=== PATIENT | male | born 1945 | race Caucasian/White ===

== ENCOUNTER 2023-10-08 03:15 | Emergency (ER) | payer OTHER, SELFPAY ==
[2023-10-08 03:23] VITALS: BP 162/94; PULSE 100; O2SAT 99
[2023-10-08 03:29] VITALS: BMI 28.1
[2023-10-08 03:58] LABS: MANUAL DIFF FLAG NO
[2023-10-08 03:59] LABS: Basophils Percent Auto 0.2 % (0-2); Eosinophils Absolute Auto 0.1 X10*3/uL (0.0-0.4); Eosinophils Percent Auto 0.9 % (0-4); Hematocrit 38.6 % (42.0-52.0); Hemoglobin 13.1 g/dl (14.0-18.0); Imm Gran Abs Auto 0.03 X10*3/uL (0.00-0.03); Imm Gran Pct Auto 0.2 % (0.0-0.4); Lymphocytes Absolute Auto 1.5 X10*3/uL (1.2-4.9); Lymphocytes Percent Auto 11.9 % (20-40); Mean Corpuscular HGB Conc 33.9 g/dl (31.0-36.0); Mean Corpuscular Hemoglobin 29.6 pg (27.0-33.0); Mean Corpuscular Volume 87.1 fL (80.0-98.0); Mean Platelet Volume 10.3 fL (9.4-12.4); Monocytes Percent Auto 8.3 % (2-11); Neutrophils Absolute Auto 9.6 x10*3/uL (2.0-8.3); Neutrophils Percent Auto 78.5 % (45-73); Platelet Count 218 X10*3/uL (160-400); Red Blood Count 4.43 X10*6/uL (4.60-5.80); Red Cell Distribution Width 12.3 % (11.0-16.0); White Blood Count 12.2 X10*3/uL (4.8-10.8)
[2023-10-08 04:20] LABS: Alanine Aminotransferase 12 U/L (0-40); Albumin Level 3.6 g/dL (3.5-5.0); Alkaline Phosphatase 62 U/L (39-117); Anion Gap 10 (12-20); Aspartate Amino Transferase 16 U/L (5-37); Bilirubin Direct 0.2 mg/dL (0.0-0.5); Bilirubin Total 0.6 mg/dL (0.0-1.0); Blood Urea Nitrogen 9 mg/dL (9-16); Calcium 10.1 mg/dL (8.4-10.2); Carbon Dioxide 29 mmol/L (22-29); Chloride 103 mmol/L (96-108); Creatinine Clr Calc Pharmacy 88.9; Estimated Glomerular Filt Rate > 60; Glucose Random 145 mg/dL (60-115); Lipase 16 U/L (8-78); Potassium 3.6 mmol/L (3.3-5.1); Sodium 138 mmol/L (135-145); Total Protein 6.9 g/dL (6.5-8.0)
[2023-10-08 04:51] VITALS: BP 111/60; PULSE 76; RESP 16; TEMP 36.9; O2SAT 98
[2023-10-08 07:10] VITALS: BP 128/62; PULSE 80; RESP 16; TEMP 36.9; O2SAT 99
--- NOTE | 2023-10-08 07:36 | ECG_ITS ---
Test Reason : CHEST PAIN Blood Pressure : / mmHG Vent. Rate : 082 BPM Atrial Rate : 082 BPM P-R Int : 144 ms QRS Dur : 088 ms QT Int : 364 ms P-R-T Axes : 041 -16 054 degrees QTc Int : 425 ms Normal sinus rhythm Low voltage QRS Borderline ECG No previous ECGs available Referred By: Real Martinez Electronically Signed By:PENG RAMIREZ MD
--- NOTE | 2023-10-08 08:06 | ED.NAVMDI ---
HPI - Nausea/Vomiting/Diarrhea General Chief complaint: Nausea/Vomiting/Diarrhea Stated complaint: weakness/ nausea/vomiting Time Seen by Provider: 10/08/23 07:00 Source: patient Mode of arrival: EMS Limitations: no limitations History of Present Illness HPI Narrative: 77-year-old male with a history of PTSD, hyperlipidemia who presents emergency department by ambulance for evaluation of hiccups, vomiting, unable to eat or drink. Patient states that he became ill yesterday morning and his symptoms started with hiccups. He states that he is vomited multiple times and has not been able to eat or drink. He also complains of abdominal pain and he points to his epigastric area, describes his pain is a squeezing sensation. He states he is feeling lightheaded, dizzy and weak. He also complains of subjective fever and chills, nonproductive cough, chest pain. He denied diarrhea. Related Data Previous Rx's ?Medication ?Instructions ?Recorded chlorpromazine 50 mg tablet 50 mg PO TID PRN Nausea, vomiting, 10/08/23 hiccups #12 tabs Allergies Allergy/AdvReac Type Severity Reaction Status Date / Time No Known Allergies Allergy Unverified 10/08/23 03:31 Review of Systems Review of Systems: Yes all other systems are reviewed and are negative [facility] Past Medical History [facility] Narrative: Social history: He denies tobacco use. He occasionally drinks alcohol. He denies drug use. Social History Social History Advance Directives: No Advance Directives Information Provided: Yes Physical Exam Vital Signs: Vital Signs: Last Vital Signs Temp 98.4 F 10/08/23 07:10 Pulse 80 10/08/23 07:10 Resp 16 10/08/23 07:10 BP 128/62 10/08/23 07:10 Pulse Ox 99 10/08/23 07:10 O2 Del Method Room Air 10/08/23 07:10 BMI result Body Mass Index 28.1 Vital signs were normal Exam: General: Awake, alert in no distress, patient has persistent hiccups Head: Normocephalic, atraumatic EENT: PERRL, Lids normal, sclera normal, conjunctiva normal, nose normal , ears normal, throat without erythema or exudates Neck: Supple, no adenopathy Lung: breath sounds symmetric, no wheezing, rales or rhonchi Chest: symmetric movement, nontender Heart: regular rate and rhythm, normal S1, S2 no murmurs or rubs Abdomen: soft, mild to moderate epigastric tenderness, nondistended, normal bowel sounds Back: no vertebral tenderness, no CVAT Extremities: no deformities, moves all extremities symmetrically Neuro: Awake, alert, oriented, normal speech, cranial nerves intact, moves all extremities symmetrically Psych: Pleasant, cooperative Medical Decision Making Medical Decision Making MDM Narrative: 77-year-old male with a history of PTSD, hyperlipidemia who presents emergency department by ambulance for evaluation of hiccups, vomiting, unable to eat or drink, epigastric pain, lightheadedness, dizziness, subjective fever and chills x2 days. Vital signs were unremarkable. Patient had persistent hiccups and exam did reveal epigastric tenderness otherwise was unremarkable. Differential diagnosis: ?Includes but is not limited to intractable hiccups, viral syndrome, electrolyte abnormalities, anemia, dehydration Following evaluation was ordered: CBC, BMP, liver panel, lipase, EKG Patient was initially treated with the following: Thorazine 50 mg IV, normal saline x1 L Course: 08:11 My interpretation patient's laboratory evaluation as follows: Elevated WBC 39094. Normocytic anemia with an H&H of 13.1 and 38.6, platelet count was normal 218,000. Glucose elevated 145. LFTs were normal. Lipase was normal. Urinalysis was positive for nitrates, microscopic revealed 15-29 WBCs, 1+ epithelial cells, 1+ bacteria. Patient is feeling better after the above treatment and his hiccups have resolved. Patient's symptoms are most likely caused by a viral syndrome. I prescribed Thorazine 50 mg 3 times a day as needed for hiccups and nausea and vomiting. He was given printed and verbal instructions and discharged home. Lab Data 10/08/23 03:53 10/08/23 03:53 Labs: Lab Results 10/08/23 Range/Units 03:53 WBC 12.2 H (4.8-10.8) X10*3/uL RBC 4.43 L (4.60-5.80) X10*6/uL Hgb 13.1 L (14.0-18.0) g/dl Hct 38.6 L (42.0-52.0) % MCV 87.1 (80.0-98.0) fL MCH 29.6 (27.0-33.0) pg MCHC 33.9 (31.0-36.0) g/dl RDW 12.3 (11.0-16.0) % Plt Count 218 (160-400) X10*3/uL MPV 10.3 (9.4-12.4) fL Immature Gran % (Auto) 0.2 (0.0-0.4) % Neut % (Auto) 78.5 H (45-73) % Lymph % (Auto) 11.9 L (20-40) % Travis % (Auto) 8.3 (2-11) % Eos % (Auto) 0.9 (0-4) % Baso % (Auto) 0.2 (0-2) % Lymph # (Auto) 1.5 (1.2-4.9) X10*3/uL Travis # (Auto) 1.0 (0.1-1.2) X10*3/uL Eos # (Auto) 0.1 (0.0-0.4) X10*3/uL Baso # (Auto) 0.0 (0.0-0.2) X10*3/uL Abs Immat Gran (auto) 0.03 (0.00-0.03) X10*3/uL Absolute Neuts (auto) 9.6 H (2.0-8.3) x10*3/uL Absolute Nucleated RBC 0.000 (0.0-0.012) X10*3/uL Nucleated RBC % (auto) 0.0 (0.0-0.2) /100WBC Sodium 138 (135-145) mmol/L Potassium 3.6 (3.3-5.1) mmol/L Chloride 103 (96-108) mmol/L Carbon Dioxide 29 (22-29) mmol/L Anion Gap 10 L (12-20) BUN 9 (9-16) mg/dL Creatinine 0.71 (0.5-1.4) mg/dL Estim Creat Clear Calc 88.9 Estimated GFR > 60 Random Glucose 145 H (60-115) mg/dL Calcium 10.1 (8.4-10.2) mg/dL Total Bilirubin 0.6 (0.0-1.0) mg/dL Direct Bilirubin 0.2 (0.0-0.5) mg/dL AST 16 (5-37) U/L ALT 12 (0-40) U/L Alkaline Phosphatase 62 (39-117) U/L Total Protein 6.9 (6.5-8.0) g/dL Albumin 3.6 (3.5-5.0) g/dL Lipase 16 (8-78) U/L Discharge Plan Discharge Clinical Impression: Viral syndrome, Intractable hiccoughs, Acute dehydration Patient Disposition: Home, Self-Care Instructions: Hiccups (ED), Viral Syndrome (ED) Additional Instructions: Your blood work was unremarkable. Your symptoms are consistent with a viral syndrome which caused him to have intractable hiccups. Take Thorazine 50 mg pills, 1 pill 3 times a day as needed for hiccups, nausea or vomiting. Follow-up with your doctor in 2 days. Please return to the emergency department if your symptoms get worse or if you develop any symptoms that are concerning to you. Prescriptions: New chlorpromazine 50 mg tablet 50 mg PO TID PRN (Reason: Nausea, vomiting, hiccups) Qty: 12 0RF Print Language: Yi
[2023-10-08 09:19] VITALS: BP 106/69; PULSE 79; RESP 16; TEMP 37; O2SAT 97
--- NOTE | 2023-10-08 10:04 | MHC.EDTECH ---
Attempted to help Pt out of bed with myself and help of information technology coordinator Christa and a walker. Pt adamantly refused, stating I don't walk. I use a wheelchair at home. TONIO Andrade aware.
[2023-10-08 13:53] VITALS: BP 125/76; PULSE 88; RESP 16; TEMP 37.1; O2SAT 99
[2023-10-08] MEDS: Ondansetron ODT 4 MG TAB.RAPDIS TRANSLINGU (13:58)
[2023-10-08 16:45] VITALS: BP 125/76; PULSE 88; RESP 16; TEMP 37.1; O2SAT 99
== END 2023-10-08 17:52 | disposition home or self-care (01) ==
PROVIDERS: Emergency Provider Emergency Medicine Emergency Medical Services
DX: B34.9 Viral infection, unspecified (principal); E86.0 Dehydration; R11.2 Nausea with vomiting, unspecified; R10.13 Epigastric pain; R06.6 Hiccough; R07.89 Other chest pain; Z79.899 Other long term (current) drug therapy
CPT/HCPCS: 36415; 80048; 80076; 83690; 85025; 93005; 99283; 99284

== ENCOUNTER → 2023-10-08 07:36 | Outpatient (BNV) | payer OTHER, SELFPAY | PROVIDERS: Emergency Provider Emergency Medicine Emergency Medical Services; Visit Provider Internal Medicine Cardiovascular Disease | DX: R07.9 Chest pain, unspecified (principal) | CPT/HCPCS: 93010 ==